=== PATIENT | female | born 1960 | race Caucasian/White ===

== ENCOUNTER 2023-01-10 13:25 | Outpatient (CLI) | payer OTHER | END 2023-01-10 13:26 | disposition home or self-care (01) | LOC: CSHWCC 13:25 | PROVIDERS: ATTEND Nurse Practitioner Family | DX: Z48.815 Encounter for surgical aftercare following surgery on the digestive system (principal); Z93.2 Ileostomy status | CPT/HCPCS: 99203; G0463 ==

== ENCOUNTER 2023-03-01 13:16 | Outpatient (CLI) | payer OTHER | END 2023-03-01 13:17 | disposition home or self-care (01) | LOC: CSHLAB 13:16 | PROVIDERS: ATTEND Surgery | DX: Z01.818 Encounter for other preprocedural examination (principal); C18.7 Malignant neoplasm of sigmoid colon | CPT/HCPCS: 93005; 93010 ==

== ENCOUNTER 2024-02-28 08:32 | Observation (INO) | payer MEDICARE ==
[2024-02-28] MEDS ORDERED: Ketorolac Tromethamine 30 MG (1 mL) VIAL ONE (09:08)
[2024-02-28] MEDS ORDERED: Ondansetron PF 4 MG/2 ML Vial ONE (09:08)
[2024-02-28 09:15] LABS: #Basophils 0.02 10x3/uL (0.0-0.2); #Monocytes 0.38 10x3/uL (0.0-1.1); #Neutrophils 7.44 10x3/uL (1.5-8.4); %Basophils 0.2 % (0.0-2.0); %Lymphocytes 14.5 % (18.0-47.0); %Monocytes 4.1 % (0.0-10.0); %Neutrophils 80.4 % (40.0-75.0); Hematocrit 42.6 % (34.9-44.5); Hemoglobin 14.4 g/dL (12.0-15.5); Mean Corpuscular HGB CONC 33.8 g/dL (32.0-36.0); Mean Corpuscular Hemoglobin 27.8 pg (27.0-33.0); Mean Corpuscular Volume 82.2 fL (81.6-98.3); Mean Platelet Volume 10.7 fL (7.4-10.4); Platelet Count 289 10x3/uL (150-450); RBC Distribution Width 13.4 % (11.5-14.5); Red Blood Cell (RBC) Count 5.18 10x6/uL (3.90-5.03); White Blood Cell (WBC) Count 9.3 10x3/uL (3.5-10.5)
[2024-02-28 09:24] LABS: ALT (SGPT) 21 U/L (8-55); AST (SGOT) 27 U/L (5-34); Albumin 3.8 g/dL (3.4-4.8); Alkaline Phosphatase 62 U/L (40-110); Anion Gap 17 mmol/L (10-20); BUN (Urea Nitrogen) 15 mg/dL (9.8-20.1); Bilirubin, Total 1.1 mg/dL (0.2-1.2); Calc. Creatinine Clearance 0 mL/min (70-130); Calcium 10.5 mg/dL (7.8-10.44); Carbon Dioxide 21 mmol/L (23-31); Chloride 101 mmol/L (98-107); Estimated GFR 66; Globulin 3.4 g/dL (2.4-3.5); Glucose 117 mg/dL (80-115); Lipase 18 U/L (8-78); Magnesium 1.7 mg/dL (1.6-2.6); Potassium 3.6 mmol/L (3.5-5.1); Protein, Total 7.2 g/dL (5.8-8.1); Sodium 135 mmol/L (136-145)
[2024-02-28 09:26] LABS: Troponin I Less than 0.010 ng/mL (< 0.028)
[2024-02-28 10:21] LABS: Bilirubin Neg (Negative); Blood, Urine 10 (Negative); Glucose, Urine (Dipstick) Normal (Negative); Ketone, Urine 50 mg/dL (Negative); Leukocyte Negative (Negative); Nitrite Negative (Negative); Protein, Urine (Dipstick) 30 mg/dl (Neg-Trace); Specific Gravity, Urine 1.015 (1.005-1.030); Urobilinogen Normal mg/dL (Less than 2)
[2024-02-28 10:26] LABS: Clarity Slightly Cloudy (Clear)
[2024-02-28 10:40] LABS: CAUTI Indications for Culture Pelvic or flank pain; RBC/HPF 0-3 HPF (0-3); WBC/HPF 0-3 HPF (0-3)
[2024-02-28 10:41] LABS: Bacteria/HPF 1+ HPF (None Seen)
[2024-02-28 10:42] LABS: Urine Culture Reflex No No
[2024-02-28] MEDS ORDERED: Morphine 4 MG/ML VIAL ONE (11:47)
[2024-02-28] MEDS ORDERED: Famotidine/PF 20 mg/2ml Vial ONE (12:24)
[2024-02-28] MEDS ORDERED: Mag-Al 1200 mg/1200 mg/30 ML UDCUP ONE (12:24)
[2024-02-28] MEDS ORDERED: Lidocaine Viscous Sol 2% 15 ml UD Cup ONE (12:24)
[2024-02-28] MEDS ORDERED: Ondansetron PF 4 MG/2 ML Vial IVP PRN (15:23)
[2024-02-28] MEDS ORDERED: Metoclopramide HCl 10 MG (2 mL) VIAL ONE (17:47)
[2024-02-28] MEDS: Lactated Ringer's 1,000 ML IV SCH (17:53)
[2024-02-28] MEDS: Metoclopramide HCl 10 MG (2 mL) VIAL IVP SCH (17:54)
[2024-02-28 20:34] VITALS: BMI 22.9
[2024-02-28] MEDS: Famotidine/PF 20 mg/2ml Vial SLOW IVP SCH (21:09)
[2024-02-28] MEDS: Ketorolac Tromethamine 30 MG (1 mL) VIAL IVP PRN (21:09)
[2024-02-28] MEDS: Acetaminophen 325 MG TAB PO SCH (21:10)
[2024-02-29 02:14] VITALS: TEMP 98.3
[2024-02-29 05:03] LABS: #Basophils 0.03 10x3/uL (0.0-0.2); #Eosinphils 0.01 10x3/uL (0.0-0.5); #Monocytes 0.71 10x3/uL (0.0-1.1); %Basophils 0.4 % (0.0-2.0); %Eosinophils 0.1 % (0.0-6.0); %Lymphocytes 30.7 % (18.0-47.0); %Monocytes 9.3 % (0.0-10.0); %Neutrophils 59.2 % (40.0-75.0); Hemoglobin 12.2 g/dL (12.0-15.5); Mean Corpuscular HGB CONC 33.9 g/dL (32.0-36.0); Mean Corpuscular Hemoglobin 28.5 pg (27.0-33.0); Mean Corpuscular Volume 84.1 fL (81.6-98.3); Mean Platelet Volume 11.2 fL (7.4-10.4); Platelet Count 242 10x3/uL (150-450); RBC Distribution Width 13.6 % (11.5-14.5); Red Blood Cell (RBC) Count 4.28 10x6/uL (3.90-5.03); White Blood Cell (WBC) Count 7.6 10x3/uL (3.5-10.5)
[2024-02-29 05:04] LABS: Anion Gap 13 mmol/L (10-20); BUN (Urea Nitrogen) 11 mg/dL (9.8-20.1); Calc. Creatinine Clearance 77 mL/min (70-130); Calcium 8.7 mg/dL (7.8-10.44); Carbon Dioxide 24 mmol/L (23-31); Chloride 103 mmol/L (98-107); Estimated GFR 78; Glucose 97 mg/dL (80-115); Potassium 3.5 mmol/L (3.5-5.1); Sodium 136 mmol/L (136-145)
[2024-02-29 08:53] VITALS: BP 134/71
== END 2024-02-29 12:11 | disposition home or self-care (01) ==
LOC: CSHERS 08:32 → CSHERHOLD 15:05 → CSHTELE 20:23
PROVIDERS: ADMIT Family Medicine; ATTEND Family Medicine
DX: E87.20 Acidosis, unspecified (principal)
CPT/HCPCS: 80048; 80053; 81001; 83605; 83690; 83735; 84484; 85025 ×2; 93005; 96361; 96374; 96375; 96376 ×2; 99285; G0378 ×3; J1885; J2272; J2405; J2765 ×2; J3490 ×2; J7120 ×2; 36415

== ENCOUNTER 2025-01-11 08:58 | Outpatient (CLI) | payer MEDICARE ==
[2025-01-11 09:56] LABS: Estimated GFR - POC 71.0
[2025-01-11] MEDS ORDERED: Iopamidol 370 76% 100 ML VIAL ONE (13:43)
== END 2025-01-11 08:59 | disposition home or self-care (01) ==
LOC: CSHCT 08:58
PROVIDERS: ATTEND Internal Medicine
DX: C18.7 Malignant neoplasm of sigmoid colon (principal); Z79.899 Other long term (current) drug therapy; K44.9 Diaphragmatic hernia without obstruction or gangrene
CPT/HCPCS: 71260; 74177; 82565; Q9967